=== PATIENT | female | born 1975 | race Asian ===

== ENCOUNTER 2023-07-02 16:31 | Emergency (ER) | payer OTHER ==
[2023-07-02 16:51] VITALS: BP 96/57; PULSE 70; RESP 20; TEMP 98.3
== END 2023-07-02 21:23 | disposition home or self-care (01) ==
LOC: FER 16:31
DX: D25.9 Leiomyoma of uterus, unspecified (principal); N83.201 Unspecified ovarian cyst, right side; N83.202 Unspecified ovarian cyst, left side; R10.31 Right lower quadrant pain; R10.32 Left lower quadrant pain
CPT/HCPCS: 76830-TC; 99284-25